=== PATIENT | female | born 1970 | race Caucasian/White ===

== ENCOUNTER 2018-04-08 17:10 | Emergency (ER) | payer MEDICAID, OTHER ==
[2018-04-08] MEDS: IBUPROFEN 800 MG TAB PO (17:58)
== END 2018-04-08 18:07 | disposition home or self-care (01) ==
LOC: FTE 17:10
DX: H92.01 Otalgia, right ear (principal); F17.210 Nicotine dependence, cigarettes, uncomplicated; R40.2142 Coma scale, eyes open, spontaneous, at arrival to emergency department; R40.2362 Coma scale, best motor response, obeys commands, at arrival to emergency department; R40.2252 Coma scale, best verbal response, oriented, at arrival to emergency department
CPT/HCPCS: 99282; Z7502